=== PATIENT | male | born 1995 | race Caucasian/White ===

== ENCOUNTER 2018-03-03 16:50 | Emergency (ER) | payer BC ==
[~2018-03-03] VITALS: Ht 165.1 cm; Wt 77.1 kg
--- NOTE | 2018-03-03 19:09 | NUR ---
Patient discharged to home in stable conditon. Written and verbal after care instructions given. Patient verbalizes understanding of instructions.
[2018-03-03 19:10] VITALS: BP 110/74
== END 2018-03-03 19:11 | disposition home or self-care (01) ==
LOC: ER 16:50
DX: L60.0 Ingrowing nail (principal)
CPT/HCPCS: 73620; A4663